=== PATIENT | male | born 1985 | race Caucasian/White ===

== ENCOUNTER 2017-09-10 08:09 | Emergency (ER) | payer BC ==
[~2017-09-10] VITALS: Ht 180.3 cm; Wt 150.0 kg
[~2017-09-10 08:09] MED LIST: BLOOD PRESSURE MED; CIPROFLOXACN500 MG PO; HYDROCHLOROT25 MG PO; IMODIUM OR; LOPRESSOR 550 MG/TAB PO; LORTAB 1010 MG PO; METO50TA52 PO; NAPROSYN500 MG PO; NAPROXEN500 MG OR; NO; NORCO1 TA1 PO; NORVASC PO; PRILOSEC20 MG/CAP PO; ULTRAM50 MG OR
[2017-09-10] MEDS ORDERED: LOSARTAN POT25 MG PO (08:27)
[2017-09-10] MEDS ORDERED: HYDROCHLOROT25 MG PO (08:27)
[2017-09-10] MEDS ORDERED: KLOR-CON 1010 MEQ PO (08:28)
[2017-09-10 08:41] LABS: HEMATOCRIT 46.6 % (39.0-50.0); HEMOGLOBIN 16.4 g/dl (14.0-18.0); IMMATURE GRANULOCYTES 0.2 % (0.0-1.0); MEAN CORPUSCULAR HGB 31.1 pG CALC (26.0-32.0); MEAN CORPUSCULAR HGB CONC 35.2 g/L CALC (32.0-36.0); NEUT# 5.29 thou/uL (1.82-7.42); RED BLOOD COUNT 5.27 mill/uL (4.70-6.10); RED CELL DISTRI WIDTH 12.8 % (11.5-15.5)
[2017-09-10 08:43] LABS: URINE BILIRUBIN - DIPSTICK NEGATIVE (NEGATIVE); URINE BLOOD DIPSTICK NEGATIVE (NEGATIVE); URINE COLOR YELLOW; URINE GLUCOSE - DIPSTICK NEGATIVE (NEGATIVE); URINE KETONE NEGATIVE (NEGATIVE); URINE LEUK ESTERASE NEGATIVE (NEGATIVE); URINE NITRITE - DIPSTICK NEGATIVE (Negative); URINE PH 7.5 (4.5-8.0); URINE PROTEIN - DIPSTICK NEGATIVE (NEG-TRACE); URINE UROBILINOGEN - DIPSTICK 0.2 E.U./dL (0.2)
[2017-09-10 09:01] LABS: MEAN CELL VOLUME 88.4 fL CALC (80.0-100.0)
[2017-09-10 09:01] LABS: URINE CLARITY CLEAR
[2017-09-10 09:08] LABS: ALBUMIN 4.3 g/dL (3.2-5.0); ALKALINE PHOSPHATASE 64 u/l (38-126); ANION GAP 18 (6-22 (CALC)); BILIRUBIN, TOTAL 1.1 mg/dL (0.0-1.4); BUN 14 mg/dL (9-20); BUN/CREATININE RATIO 19 (12-20 (CALC)); CARBON DIOXIDE 27 mmol/l (22-30); CHLORIDE 102 mmol/l (95-108); CREATININE 0.7 mg/dL (0.7-1.3); GFR > 60 ML/MIN (>=60 (CALC)); GFR FOR AFR.AMER. > 60 ML/MIN (>=60 (CALC)); LIPASE 102 u/l (23-300); SGOT/AST 33 u/l (17-59); SGPT/ALT 50 u/l (21-72); SODIUM 142 mmol/l (137-146); TOTAL PROTEIN 7.7 g/dL (6.3-8.2)
[2017-09-10 09:11] LABS: POTASSIUM 4.7 mmol/l (3.5-5.1)
[2017-09-10] MEDS ORDERED: RANITIDINE 150150 MG PO (10:23)
[2017-09-10 10:39] VITALS: BP 120/66
== END 2017-09-10 10:39 | disposition home or self-care (01) | DRG 392 ==
LOC: ED 08:09
PROVIDERS: Family Medicine
DX: R10.11 Right upper quadrant pain (principal); R10.32 Left lower quadrant pain; I10 Essential (primary) hypertension; F17.220 Nicotine dependence, chewing tobacco, uncomplicated
CPT/HCPCS: Q9967

== ENCOUNTER 2018-08-16 18:58 | Emergency (ER) | payer BC ==
[~2018-08-16] VITALS: Ht 180.3 cm; Wt 112.2 kg
[~2018-08-16 18:58] MED LIST changes: +KLOR-CON 1010 MEQ PO; +LOSARTAN POT25 MG PO; +RANITIDINE 150150 MG PO
[2018-08-16] MEDS ORDERED: VOLTAREN - GENE75 MG PO (19:23)
[2018-08-16] MEDS ORDERED: TRAMADOL HCL50 MG PO (19:23)
[2018-08-16] MEDS ORDERED: FLEXERIL5 M1 PO (19:23)
[2018-08-16 19:39] VITALS: BP 131/83
== END 2018-08-16 19:39 | disposition home or self-care (01) | DRG 563 ==
LOC: ED 18:58
DX: S39.012A Strain of muscle, fascia and tendon of lower back, initial encounter (principal); X50.1XXA Overexertion from prolonged static or awkward postures, initial encounter; Y92.812 Truck as the place of occurrence of the external cause

== ENCOUNTER 2020-12-05 13:00 | Inpatient (IN) | payer OTHER ==
[~2020-12-05] VITALS: Ht 180.3 cm; Wt 144.0 kg
[~2020-12-05 13:00] MED LIST changes: +FLEXERIL5 M1 PO; +TRAMADOL HCL50 MG PO; +VOLTAREN - GENE75 MG PO
--- NOTE | 2020-12-05 13:00 | NUR ---
PT AMBULATED TO ROOM 15 W/STEADY GAIT DIAPHORETIC. SATS 84 % RA. PT REFUSED WC X 2.
[2020-12-05 14:04] LABS: HEMATOCRIT 43.3 % (39.0-50.0); HEMOGLOBIN 15.6 g/dl (14.0-18.0); IMMATURE GRANULOCYTES 0.2 % (0.0-5.0); MEAN CELL VOLUME 88.5 fL CALC (80.0-100.0); MEAN CORPUSCULAR HGB 31.9 pG CALC (26.0-32.0); NEUT# 10.18 thou/uL (1.82-7.42); RED BLOOD COUNT 4.89 mill/uL (4.70-6.10); RED CELL DISTRI WIDTH 11.6 % (11.5-15.5)
[2020-12-05 14:07] LABS: ALBUMIN 4.1 g/dL (3.2-5.0); ALKALINE PHOSPHATASE 49 u/l (38-126); BILIRUBIN, TOTAL 1.5 mg/dL (0.0-1.4); BUN 16 mg/dL (9-20); BUN/CREATININE RATIO 16 (12-20 (CALC)); CARBON DIOXIDE 31 mmol/l (22-30); CHLORIDE 97 mmol/l (95-108); GFR > 60 ML/MIN (>=60 (CALC)); GFR FOR AFR.AMER. > 60 ML/MIN (>=60 (CALC)); SODIUM 135 mmol/l (137-146); TOTAL PROTEIN 7.7 g/dL (6.3-8.2)
[2020-12-05 14:11] LABS: ANION GAP 11 (6-22 (CALC)); POTASSIUM 3.6 mmol/l (3.5-5.1); SGOT/AST 69 u/l (17-59)
[2020-12-05 14:19] LABS: MYOGLOBIN 79 ng/mL (0 - 121)
--- NOTE | 2020-12-05 14:55 | NUR ---
PT UP TO BATHROOM WITH STEADY GAIT
--- NOTE | 2020-12-05 16:08 | NUR ---
STABLE, NO CHANGES. PENDING ADMISSION.
--- NOTE | 2020-12-05 17:06 | NUR ---
PT ADMITTED, NURSE ON MEDSURG TO CALL ED FOR REPORT.
--- NOTE | 2020-12-05 17:20 | NUR ---
ATTEMPTED TO CALL REPORT TO FLOOR, NURSE WITH ANOTHER ADMISSION, WILL CALL BACK.
--- NOTE | 2020-12-05 18:26 | NUR ---
IV MEDS INFUSING WITHOUT DIFFICULTY. VITALS UPDATE, STABLE.
--- NOTE | 2020-12-05 18:40 | NUR ---
REPORT GIVEN TO BELEN PÉREZ ON [facility]. PT ADMITTED TO [phone]
[2020-12-05 19:00] VITALS: BP 127/72
--- NOTE | 2020-12-05 20:00 | NUR ---
PATIENT IS RESTING COMFORTABLY. NO CONCERNS OR COMPLAINTS AT THIS TIME
--- NOTE | 2020-12-06 02:07 | NUR ---
PATIENT IN PRONE POSITION SLEEPING
[2020-12-06 04:31] VITALS: BP 116/76
[2020-12-06 05:37] LABS: HEMATOCRIT 41.6 % (39.0-50.0); HEMOGLOBIN 14.8 g/dl (14.0-18.0); IMMATURE GRANULOCYTES 0.2 % (0.0-5.0); MEAN CELL VOLUME 88.7 fL CALC (80.0-100.0); MEAN CORPUSCULAR HGB 31.6 pG CALC (26.0-32.0); MEAN CORPUSCULAR HGB CONC 35.6 g/dL CAL (32.0-36.0); NEUT# 5.57 thou/uL (1.82-7.42); RED BLOOD COUNT 4.69 mill/uL (4.70-6.10); RED CELL DISTRI WIDTH 11.7 % (11.5-15.5)
[2020-12-06 05:54] LABS: ALBUMIN 3.6 g/dL (3.2-5.0); ALKALINE PHOSPHATASE 44 u/l (38-126); ANION GAP 12 (6-22 (CALC)); BUN 14 mg/dL (9-20); BUN/CREATININE RATIO 23 (12-20 (CALC)); CARBON DIOXIDE 31 mmol/l (22-30); CHLORIDE 98 mmol/l (95-108); CREATININE 0.6 mg/dL (0.7-1.3); GFR > 60 ML/MIN (>=60 (CALC)); GFR FOR AFR.AMER. > 60 ML/MIN (>=60 (CALC)); POTASSIUM 3.9 mmol/l (3.5-5.1); SGOT/AST 60 u/l (17-59); SODIUM 136 mmol/l (137-146); TOTAL PROTEIN 6.6 g/dL (6.3-8.2)
[2020-12-06 05:56] LABS: BILIRUBIN, TOTAL 0.8 mg/dL (0.0-1.4)
[2020-12-06 08:50] VITALS: BP 145/77
--- NOTE | 2020-12-06 08:50 | NUR ---
PT SITTING IN BED. A&O X4. NO DISTRESS NOTED. O2 VIA NC @4L IN PLACE. O2 SUSTAINING 90-91%. CLEAR DIMINISHED BREATH SOUNDS UPON AUSCULTATION. BOOK RETAILER PLACED BY THIS SPINDLE SETTER. IS DEVICE GIVEN, EDUCATION GIVEN ON ITS PROPER USE, ENCOURAGED PT TO USE DEVICE Q1 HR X10 REPITITIONS. ACTIVE BOWEL SOUNDS X4 QUADRANTS. #20G LAC HEALTHY AND PATENT. NO OTHER NEEDS AT THIS TIME. ASSESSMENT COMPLETED. DISCUSSED POC. CALL LIGHT WITHIN REACH ISOLATION PRECAUTIONS IN PLACE.
[2020-12-06 09:58] LABS: URINE BLOOD DIPSTICK TRACE-INTACT (NEGATIVE); URINE GLUCOSE - DIPSTICK NEGATIVE (NEGATIVE); URINE KETONE 40 mg/dL (NEGATIVE); URINE LEUK ESTERASE NEGATIVE (NEGATIVE); URINE PH 6.5 (4.5-8.0); URINE PROTEIN - DIPSTICK TRACE mg/dL (NEG-TRACE); URINE SPECIFIC GRAVITY 1.025
[2020-12-06 09:59] LABS: URINE BILIRUBIN - DIPSTICK SMALL (NEGATIVE); URINE COLOR DK. YELLOW; URINE NITRITE - DIPSTICK NEGATIVE (Negative)
[2020-12-06 11:00] VITALS: BP 110/60
--- NOTE | 2020-12-06 12:00 | NUR ---
PT SITTING IN BED. HF O2 VIA NC APPLIED AND TITRATED UP TO 6L, O2 SUSTAINING 92%. NO OTHER NEEDS AT THIS TIME. CALL LIGHT WITHIN REACH.
--- NOTE | 2020-12-06 12:49 | NUR ---
DR MORA AT BEDSIDE DISCUSSING POC
[2020-12-06 16:00] VITALS: BP 114/64
--- NOTE | 2020-12-06 17:17 | NUR ---
PT SITTING IN BED. IV REMAINS HEALTHY AND PATENT. HF NC @6L REMAINS IN PLACE; O2 SUSTAINING 90-93%. NO OTHER NEEDS AT THIS TIME.CALL LIGHT WITHIN REACH.
[2020-12-06 18:00] VITALS: BP 120/65
--- NOTE | 2020-12-06 19:00 | NUR ---
REPORT RECEIVED FROM Matty GARCIA RN, CARE OF PT ASSUMED AT THIS TIME.
--- NOTE | 2020-12-06 20:03 | NUR ---
SP02 92% ON HIGH FLOW NASAL CANNULA AT 6L/MIN. RESPIRATIONS SHALLOW, REGULAR AND UNLABORED AT REST.REPORTS INFREQUENT NON-PRODUCTIVE COUGH. SOB W/ EXERTION. EDUCATION PROVIDED ON PULMONARY HYGIENE AND PRONING. SEE E-MAR FOR HUMAN RESOURCES ASSISTANT MANAGER. L-AC #20G PATENT AND SALINE LOCKED. COVID-19 ISOLATION PRECAUTIONS MAINTAINED. PT DENIES NEEDS AT THIS TIME. CALL GALICIA WITHIN REACH, AGREES TO CALL PRN. BED LOCKED IN LOW POSITION WITH BEDRAILS UP X2.
[2020-12-07] VITALS: BP 122/67
--- NOTE | 2020-12-07 | NUR ---
PT APPEARS TO BE SLEEPING COMFORTABLY. RESPIRATIONS REGULAR AND UNLABORED. CALL GALICIA REMAINS WITHIN REACH.
[2020-12-07 05:15] VITALS: BP 101/54
[2020-12-07 05:54] LABS: HEMATOCRIT 43.2 % (39.0-50.0); HEMOGLOBIN 15.3 g/dl (14.0-18.0); IMMATURE GRANULOCYTES 0.5 % (0.0-5.0); MEAN CELL VOLUME 88.9 fL CALC (80.0-100.0); MEAN CORPUSCULAR HGB 31.5 pG CALC (26.0-32.0); MEAN CORPUSCULAR HGB CONC 35.4 g/dL CAL (32.0-36.0); NEUT# 5.36 thou/uL (1.82-7.42); RED BLOOD COUNT 4.86 mill/uL (4.70-6.10); RED CELL DISTRI WIDTH 11.9 % (11.5-15.5)
--- NOTE | 2020-12-07 06:06 | NUR ---
PT DENIES NEEDS AT THIS TIME. RESTING IN BED COMFORTABLY. SPO2 94%. CALL GALICIA REMAINS WITHIN REACH, AGREES TO CALL PRN.
[2020-12-07 06:11] LABS: ALBUMIN 3.6 g/dL (3.2-5.0); ALKALINE PHOSPHATASE 46 u/l (38-126); ANION GAP 10 (6-22 (CALC)); BILIRUBIN, TOTAL 0.9 mg/dL (0.0-1.4); BUN 20 mg/dL (9-20); BUN/CREATININE RATIO 31 (12-20 (CALC)); CARBON DIOXIDE 30 mmol/l (22-30); CHLORIDE 103 mmol/l (95-108); CREATININE 0.6 mg/dL (0.7-1.3); GFR > 60 ML/MIN (>=60 (CALC)); GFR FOR AFR.AMER. > 60 ML/MIN (>=60 (CALC)); POTASSIUM 3.7 mmol/l (3.5-5.1); SGOT/AST 53 u/l (17-59); SODIUM 140 mmol/l (137-146); TOTAL PROTEIN 6.6 g/dL (6.3-8.2)
--- NOTE | 2020-12-07 09:05 | NUR ---
02 6L/M HUMIDIFIED VIA HIGH FLOW NASAL CANNULA. SP02 93% AT REST.
[2020-12-07 10:50] VITALS: BP 114/69
--- NOTE | 2020-12-07 12:00 | NUR ---
RECIEVED REPORT FROM BELEN AGUERO
--- NOTE | 2020-12-07 12:34 | NUR ---
DR HAMILTON AND BLAYNE,ANOMID AT BEDSIDE
--- NOTE | 2020-12-07 13:56 | NUR ---
PT RESTING IN SEMI FOWLERS POSITION. PT IS A/OX3.RESPIRATIONS ARE EVEN AND UNLABORED ON 5L HIGH FLOW NC, 96%. LUNG SOUNDS ARE CLEAR. HEART RHYTHM NORMAL WITH TELE IN PLACE. BOWEL SOUNDS ARE ACTIVE. #20G LAC FLUSHED, SITE APPEARS HEALTHY AND PATENT. SKIN INTACT. PT DENIES OF ANY PAINS OR DISCOMFORTS AT THIS TIME. ALL SAFETY PRECAUTIONS ARE IN PLACE WITH CALL LIGHT IN REACH. AIR/CONTACT PRECAUTIONS ARE IN PLACE. WILL CONTINUE TO MONITOR.
[2020-12-07 15:32] VITALS: BP 112/61
--- NOTE | 2020-12-07 16:39 | NUR ---
PT RESTING IN SEMI FOWLERS POSITION. RESPIRATIONS ARE EVEN AND UNLABORED ON 5L HIGH FLOW NC. #20G LAC REMAINS IN PLACE. TELE MONITORING IN PLACE. PT DENIES OF ANY PAINS OR DISCOMFORTS AT THIS TIME. ALL SAFETY AND ISOLATION PRECAUTIONS ARE IN PLACE WITH CALL LIGHT IN REACH. WILL CONTINUE TO MONITOR.
[2020-12-07 19:50] VITALS: BP 124/70
--- NOTE | 2020-12-07 20:00 | NUR ---
PHYSICAL ASSESMENT COMPLETE. PT CURRENTLY DENIES PAIN OR DISCOMFORT. SCHEDULED MEDICATIONS AND PRN MEDICATION ADMINISTERED, SEE E-MAR. PT DENIES ANY NEEDS AT THIS TIME. PLAN OF CARE REVIEWED, PT DENIES QUESTIONS, VERBALIZES UNDERSTANDING. ITEMS WITHIN REACH, BED LOCKED IN LOW POSITION W/ BEDRAILS UP X2. CALL GALICIA WITHIN REACH, AGREES TO CALL PRN.
--- NOTE | 2020-12-07 23:57 | NUR ---
PT LAYING IN BED WITH EYES CLOSED, APPEARS TO BE SLEEPING, APPEARS COMFORTABLE AND IN NO DISTRESS. RESPIRATIONS REGULAR AND UNLABORED. ITEMS REMAIN WITHIN REACH, CALL GALICIA REMAINS WITHIN REACH. BED REMAINS LOCKED AND IN LOW POSITION WITH BEDRAILS UP X2. WILL CONTINUE TO MONITOR.
[2020-12-08 00:44] VITALS: BP 96/53
--- NOTE | 2020-12-08 04:13 | NUR ---
PT RESTING IN BED, NO SIGNS OF DISTRESS NOTED, RESP EVEN AND UNLABORED. PT VOICES NO NEEDS OR COMPLAINTS AT THIS TIME. CALL LIGHT IN REACH, CONTINUE TO MONITOR.
[2020-12-08 04:58] VITALS: BP 115/73
--- NOTE | 2020-12-08 07:00 | NUR ---
RECIEVED REPORT FROM BELEN SANTIAGO
[2020-12-08 07:19] LABS: HEMATOCRIT 43.1 % (39.0-50.0); HEMOGLOBIN 15.1 g/dl (14.0-18.0); MEAN CELL VOLUME 90.2 fL CALC (80.0-100.0); MEAN CORPUSCULAR HGB 31.6 pG CALC (26.0-32.0); NEUT# 7.19 thou/uL (1.82-7.42); RED BLOOD COUNT 4.78 mill/uL (4.70-6.10); RED CELL DISTRI WIDTH 11.9 % (11.5-15.5)
[2020-12-08 07:39] VITALS: BP 112/71
--- NOTE | 2020-12-08 07:39 | NUR ---
PT RESTING IN SEMI FOWLERS POSITION. PT IS A/O X3. ASSESSMENT AND VTALS COMPLETED. BP 112/71, HR 65, O2 94% ON 4L NC. RESIRATIONS ARE EVEN AND UNLABORED. HERAT RHYTHM NORMAL WITH TELE IN PLACE. BOWEL SOUNDS ARE ACTIVE X4. #22G LAC FLUSHED, SITE APPEARS HEALTHY AND PATENT. SKIN INTACT. PT DENIES OF ANY PAINS OR DISCOMFORTS AT THIS TIME. PT REQUEST FOR O2 TO BE DECREASED. BRANCH EMPLOYMENT COORDINATOR INFORMED THAT PT WAS ON 5 AND HAS BEEN TURNED DOWN TO 4. BRANCH EMPLOYMENT COORDINATOR EDUCATED ON SLOWLY DECREASING O2. PT VERBALIZED UNDERSTANDING BUT STATES " IM GOING HOME NO MATTER WHAT." BRANCH EMPLOYMENT COORDINATOR EDUCATED ON OXYGEN DEMAND AT THIS TIME. PT STATES " I HAVE A DOCTOR ON THE OUTSIDE THAT CAN ORDER ME OXYGEN." MD TO BE NOTFIED. O2 TO BE DECREASED SLOWLY TOLERATED. ALL SAFETY PRECAUTIONS ARE IN PLACE WITH CALL LIGHT IN REACH. ISOLAITON PRECAUTIONS. WILL CONTINUE TO MONITOR
[2020-12-08 07:49] LABS: ALBUMIN 3.4 g/dL (3.2-5.0); ALKALINE PHOSPHATASE 42 u/l (38-126); ANION GAP 9 (6-22 (CALC)); BILIRUBIN, TOTAL 0.8 mg/dL (0.0-1.4); BUN 22 mg/dL (9-20); BUN/CREATININE RATIO 30 (12-20 (CALC)); C-REACTIVE PROTEIN 4.2 mg/dL (0-0.9); CARBON DIOXIDE 31 mmol/l (22-30); CHLORIDE 103 mmol/l (95-108); CREATININE 0.7 mg/dL (0.7-1.3); GFR > 60 ML/MIN (>=60 (CALC)); GFR FOR AFR.AMER. > 60 ML/MIN (>=60 (CALC)); POTASSIUM 3.9 mmol/l (3.5-5.1); SGOT/AST 57 u/l (17-59); SODIUM 139 mmol/l (137-146); TOTAL PROTEIN 6.3 g/dL (6.3-8.2)
[2020-12-08 10:58] VITALS: BP 100/62
--- NOTE | 2020-12-08 11:40 | NUR ---
DR HAMILTON AND BLAYNE,ANOMID AT BEDSIDE
--- NOTE | 2020-12-08 11:56 | NUR ---
O2 INCREASED TO 6.5L HIGH FLOW NC, 91%. RESPIRATIONS REMAINS EVEN AND UNLABORED. TELE MONITORING IN PLACE. PT RE-EDUCATED ON IS, 1500 REACHED. PT DENIES OF ANY PAINS OR DISCOMFORTS AT THIS TIME. ALL SAFETY PRECAUTIONS ARE IN PLACE WITH CALL LIGHT IN REACH. WILL CONTINUE TO MONITOR.
[2020-12-08 14:55] VITALS: BP 124/68
--- NOTE | 2020-12-08 15:48 | NUR ---
PT RESTING IN SEMI FOWLERS POSITION WATCHING. RESPIRATIONS ARE EVEN AND UNLABORED ON 6.5L HIGH FLOW NC. TELE MONITORING IN PLACE. #22G LAC FLUSHED, SITE APEPARS HEALTHY AND PATENT. PT DENIES OF ANY PAINS OR DISCOMFORTS AT THIS TIME. ALL SAFETY PRECAUTIONS ARE IN PLACE WITH CALL LIGHT IN REACH. WILL CONTINUE TO MONITOR.
--- NOTE | 2020-12-08 16:18 | NUR ---
[place] FROM ER CALLED STATING PT 130-180S. PT IN BATHROOM BRUSHING TEETH
--- NOTE | 2020-12-08 18:22 | NUR ---
PT COMPLAINS OF NC BEING UNFORTABLE. HUMIDIFICATION ALREADY APPLIED. PT AGGITATED AT THIS TIME. PT STATES SHE NO LONGER WEARING THE OXYGEN. FAMILY ON PHONE TELLING PT NOT TO WEAR IT. NOTIFIED.
--- NOTE | 2020-12-08 18:37 | NUR ---
GUAZE WRAP APPLIED TO NC FOR COMFORT. PT EDUACTED ON NEED TO KEEP O2 ON TO ATTEMPT WEANING. PT VERBALIZED UNDERSTANDING.6.5L NC REAPPLIED. RESPIRATIONS REMAINS EVEN AND UNLABORED,
[2020-12-08 19:41] VITALS: BP 149/82
[2020-12-09] VITALS: BP 125/73
[2020-12-09 04:00] VITALS: BP 137/80
[2020-12-09 06:08] LABS: HEMATOCRIT 43.2 % (39.0-50.0); HEMOGLOBIN 15.5 g/dl (14.0-18.0); IMMATURE GRANULOCYTES 4.1 % (0.0-5.0); MEAN CELL VOLUME 88.9 fL CALC (80.0-100.0); MEAN CORPUSCULAR HGB 31.9 pG CALC (26.0-32.0); MEAN CORPUSCULAR HGB CONC 35.9 g/dL CAL (32.0-36.0); NEUT# 8.88 thou/uL (1.82-7.42); RED BLOOD COUNT 4.86 mill/uL (4.70-6.10); RED CELL DISTRI WIDTH 11.8 % (11.5-15.5)
[2020-12-09 06:25] LABS: ALBUMIN 3.3 g/dL (3.2-5.0); ALKALINE PHOSPHATASE 41 u/l (38-126); ANION GAP 9 (6-22 (CALC)); BUN 15 mg/dL (9-20); BUN/CREATININE RATIO 25 (12-20 (CALC)); CARBON DIOXIDE 29 mmol/l (22-30); CHLORIDE 106 mmol/l (95-108); CREATININE 0.6 mg/dL (0.7-1.3); GFR > 60 ML/MIN (>=60 (CALC)); GFR FOR AFR.AMER. > 60 ML/MIN (>=60 (CALC)); POTASSIUM 3.5 mmol/l (3.5-5.1); SGOT/AST 61 u/l (17-59); SODIUM 140 mmol/l (137-146); TOTAL PROTEIN 6.2 g/dL (6.3-8.2)
--- NOTE | 2020-12-09 07:00 | NUR ---
RECIEVED REPORT FROM BELEN SANTIAGO
[2020-12-09 08:26] VITALS: BP 128/72
--- NOTE | 2020-12-09 08:26 | NUR ---
PT RESTING IN SEMI FOWLERS POSITION. PT IS A/O X3. ASSESSMENT AND VITALS COMPLETED. BP 128/72, HR 71, O2 94% ON 5L HIGH FLOW NC. RESPIRATIONS ARE EVEN AND UNLABORED WITH NO DISTRESS NOTED. LUNG SOUNDS ARE CLEAR. HEART RHYTHM NORMAL WITH TELE IN PLACE. BOWEL SOUNDS ARE ACTIVE.LBM 9/, LOOSE STOOLS REPORTED. #22G LAC FLUSHED, SITE APPEARS HEALTHY AND PATENT. SKIN INTACT. PT DENIES OF ANY PAINS OR DISCOMFORTS AT THIS TIME. PT EXPRESSES HIS FEELINGS ON LEAVING TODAY. PT STATES " THE DR IS GOING TO WRITE ME A PRESCRIPTION FOR OXYGEN TODAY AND I AM LEAVING." CHART CLERK INFORMED PT THAT HE WOULD HAVE TO TALK TO DOCTOR. ALL SAFETY PRECAUTIONS ARE IN PLACE WITH CALL LIGHT IN REACH. ISOLATION PRECAUTIONS ARE IN PLACE WITH CALL LIGHT IN REACH. WILL CONTINUE TO MONITOR.
[2020-12-09 10:30] VITALS: BP 143/70
[2020-12-09 10:35] VITALS: BP 143/75
--- NOTE | 2020-12-09 11:42 | NUR ---
PT RESTING IN SEMI FOWLERS POSITION. RESPIRATIONS ARE EVEN AND UNLABORED WITH NO DISTRESS NOTED.92% ON 4L NC. TELE MONITORING IN PLACE. PT DENIES OF ANY PAINS OR DISCOMFORTS AT THIS TIME. ALL SAFETY PRECAUTIONS ARE IN PLACE WITH CALL LIGHT IN REACH. WILL CONTINUE TO MONITOR.,
--- NOTE | 2020-12-09 11:50 | NUR ---
DR HAMILTON AND BLAYNE,ANOMID AT BEDSIDE
--- NOTE | 2020-12-09 12:20 | NUR ---
O2 DECREASED TO 2L NC, O2 93%. O2 REMOVED FOR TEST WALK. PT INSTRUCTED TO CALL IF FEELEING SOB. PT VERBLAIZED UNDERSTANDING. WILL CONTINUE TO MONTIOR.
--- NOTE | 2020-12-09 12:46 | NUR ---
O2 87% ON ROOM AIR. 3L NC REAPPLIED, 94%. RESPIRATIONS REMAINS EVEN AND UNLABORED. DR HAMILTON NOTIFIED.
[2020-12-09] MEDS ORDERED: ZITHROMAX250 MG PO (16:06)
[2020-12-09] MEDS ORDERED: DEXAMETHASON6 MG PO (16:07)
[2020-12-09] MEDS ORDERED: ASPIRIN REGULA325 M1 PO (16:07)
--- NOTE | 2020-12-09 17:25 | NUR ---
PT EDUCATED ON DC INSTRUCTIONS AND NEW MEDICATIONS ALONG WITH HOME OXYGEN. IV REMOVED WITH CATHATER STILL INTACT. PT CONNECTED TO HOME O2.
--- NOTE | 2020-12-09 17:41 | NUR ---
Discharge instructions given. Patient verbalizes understanding of same. Discharged in stable condition via Wheelchair to Home with staff. All belongings sent with pt. PT DC HOME IN STABLE CONDITION VIA WHEELCHAIR ACCOMPAINED BY WRITTER WITH ALL PERSONAL BELONINGS, DC INSTRUCTIONS.
== END 2020-12-09 17:44 | disposition home or self-care (01) | DRG 177 ==
LOC: ED 13:00 → ED-I 15:04 → ED 16:06 → MS2 16:07
PROVIDERS: Emergency Medicine; Nurse Practitioner; ADMIT Internal Medicine; ATTEND Internal Medicine
PROC: XW033E5 Introduction of Remdesivir Anti-infective into Peripheral Vein, Percutaneous Approach, New Technology Group 5 (ICD-10-PCS; principal; 2020-12-06)
DX: U07.1 COVID-19 (principal); J12.82 Pneumonia due to coronavirus disease 2019; J96.01 Acute respiratory failure with hypoxia; Z68.41 Body mass index [BMI] 40.0-44.9, adult; I10 Essential (primary) hypertension; E66.01 Morbid (severe) obesity due to excess calories
CPT/HCPCS: J1650; Q9967

== ENCOUNTER 2022-10-05 07:28 | Emergency (ER) | payer OTHER ==
[~2022-10-05] VITALS: Ht 180.3 cm; Wt 149.0 kg
[~2022-10-05 07:28] MED LIST changes: +ASPIRIN REGULA325 M1 PO; +COZAAR100 MG PO; +DEXAMETHASON6 MG PO; +K-TAB20 MEQ; +NORVASC10 M1 PO; +TOPROL XL50 MG PO; +ZITHROMAX250 MG PO
[2022-10-05 07:41] VITALS: BP 158/104
[2022-10-05 08:00] VITALS: BP 144/94
[2022-10-05 08:21] LABS: BASO% 0.6 % (0-3); EOS% 4.4 % (0-8); HEMATOCRIT 45.3 % (39.0-50.0); HEMOGLOBIN 15.8 g/dl (14.0-18.0); IMMATURE GRANULOCYTES 0.3 % (0.0-5.0); LYMPH% 25.4 % (15-41); MEAN CELL VOLUME 85.6 fL CALC (80.0-100.0); MEAN CORPUSCULAR HGB 29.9 pG CALC (26.0-32.0); MEAN CORPUSCULAR HGB CONC 34.9 g/dL CAL (32.0-36.0); MONO% 6.5 % (2-13); NEUT# 4.86 thou/uL (1.82-7.42); NEUT% 62.8 % (42-76); RED BLOOD COUNT 5.29 mill/uL (4.70-6.10); RED CELL DISTRI WIDTH 12.3 % (11.5-15.5)
[2022-10-05 10:12] VITALS: BP 143/94
[2022-10-05] MEDS ORDERED: IBUPROFEN600 MG PO (10:13)
[2022-10-05] MEDS ORDERED: LIDOCARE ARM/NECK4 % TOP (10:13)
[2022-10-05] MEDS ORDERED: METHOCARBAMOL500 MG PO (10:13)
== END 2022-10-05 10:18 | disposition home or self-care (01) | DRG 552 ==
LOC: ED 07:28
PROVIDERS: Family Medicine
DX: M54.50 Low back pain, unspecified (principal); I10 Essential (primary) hypertension; K21.9 Gastro-esophageal reflux disease without esophagitis; E66.01 Morbid (severe) obesity due to excess calories; Z86.19 Personal history of other infectious and parasitic diseases; F17.200 Nicotine dependence, unspecified, uncomplicated

== ENCOUNTER 2023-05-14 13:35 | Emergency (ER) | payer OTHER ==
[~2023-05-14] VITALS: Ht 180.3 cm; Wt 150.0 kg
[~2023-05-14 13:35] MED LIST changes: +IBUPROFEN600 MG PO; +LIDOCARE ARM/NECK4 % TOP; +METHOCARBAMOL500 MG PO
[2023-05-14 14:31] VITALS: BP 133/91
[2023-05-14 14:44] LABS: BASO% 0.5 % (0-3); EOS% 6.2 % (0-8); HEMOGLOBIN 15.1 g/dl (14.0-18.0); IMMATURE GRANULOCYTES 0.2 % (0.0-5.0); LYMPH% 31.7 % (15-41); MEAN CELL VOLUME 86.3 fL CALC (80.0-100.0); MEAN CORPUSCULAR HGB 30.3 pG CALC (26.0-32.0); MEAN CORPUSCULAR HGB CONC 35.1 g/dL CAL (32.0-36.0); MONO% 8.7 % (2-13); NEUT# 4.61 thou/uL (1.82-7.42); NEUT% 52.7 % (42-76); RED BLOOD COUNT 4.98 mill/uL (4.70-6.10); RED CELL DISTRI WIDTH 12.8 % (11.5-15.5)
[2023-05-14 15:10] LABS: ALKALINE PHOSPHATASE 52 u/l (38-126); ANION GAP 10 (6-22 (CALC)); BILIRUBIN, TOTAL 1.1 mg/dL (0.2-1.3); BUN 16 mg/dL (9-20); BUN/CREATININE RATIO 22 (12-20 (CALC)); CARBON DIOXIDE 30 mmol/l (22-30); CHLORIDE 104 mmol/l (95-108); CREATININE 0.7 mg/dL (0.7-1.3); GFR FOR AFR.AMER. > 60 ML/MIN (>=60 (CALC)); GFR OTHER RACES > 60 ML/MIN (>=60 (CALC)); LIPASE 72 u/l (23-300); POTASSIUM 4.1 mmol/l (3.5-5.1); SGOT/AST 36 u/l (17-59); SODIUM 140 mmol/l (137-146)
[2023-05-14 15:14] LABS: ALBUMIN 4.2 g/dL (3.2-5.0)
[2023-05-14 15:19] LABS: URINE BILIRUBIN - DIPSTICK Negative (NEGATIVE); URINE BLOOD DIPSTICK Negative (NEGATIVE); URINE COLOR Yellow; URINE GLUCOSE - DIPSTICK Negative (NEGATIVE); URINE KETONE Negative (NEGATIVE); URINE LEUK ESTERASE Negative (NEGATIVE); URINE NITRITE - DIPSTICK Negative (Negative); URINE PH 7.5 (4.5-8.0); URINE PROTEIN - DIPSTICK Negative (NEG-TRACE); URINE UROBILINOGEN - DIPSTICK 0.2 E.U./dL (0.2)
[2023-05-14] MEDS ORDERED: PROTONIX40 M2 PO (17:51)
[2023-05-14] MEDS ORDERED: TRAMADOL HYDROC50 M1 PO (17:51)
[2023-05-14] MEDS ORDERED: LOMOTIL2.5 MG PO (17:51)
[2023-05-14] MEDS ORDERED: ZOFRAN4 MG/TAB PO (17:51)
[2023-05-14 18:17] VITALS: BP 133/91
== END 2023-05-14 18:17 | disposition home or self-care (01) | DRG 446 ==
LOC: ED 13:35
PROVIDERS: Nurse Practitioner
DX: K80.20 Calculus of gallbladder without cholecystitis without obstruction (principal); I10 Essential (primary) hypertension; K21.9 Gastro-esophageal reflux disease without esophagitis; E66.01 Morbid (severe) obesity due to excess calories
CPT/HCPCS: Q9967; S0164

== ENCOUNTER 2024-04-14 19:16 | Emergency (ER) | payer OTHER ==
[~2024-04-14] VITALS: Ht 180.3 cm; Wt 150.0 kg
[~2024-04-14 19:16] MED LIST changes: +CHOLESTYRAMINE4 G1 PO; +DIPHENOXYLATE/A1 TA1 PO; +LOMOTIL2.5 MG PO; +METOPROL TAR100 MG PO; +PERCOCET 5/325M1 TAB PO; +PROTONIX40 M2 PO; +TRAMADOL HYDROC50 M1 PO; +ZOFRAN4 MG/TAB PO
[2024-04-14 19:38] VITALS: BP 152/93
[2024-04-14] MEDS ORDERED: ASPIRIN 81 MG/TAB PO ONE (19:40)
[2024-04-14 19:59] LABS: BASO% 0.4 % (0-3); HEMATOCRIT 43.2 % (39.0-50.0); HEMOGLOBIN 15.6 g/dl (14.0-18.0); IMMATURE GRANULOCYTES 0.2 % (0.0-5.0); LYMPH% 25.6 % (15-41); MEAN CORPUSCULAR HGB 30.7 pG CALC (26.0-32.0); MEAN CORPUSCULAR HGB CONC 36.1 g/dL CAL (32.0-36.0); MONO% 8.4 % (2-13); NEUT# 6.23 thou/uL (1.82-7.42); NEUT% 63.4 % (42-76); RED BLOOD COUNT 5.08 mill/uL (4.70-6.10)
[2024-04-14 20:13] LABS: ALBUMIN 4.4 g/dL (3.2-5.0); ALKALINE PHOSPHATASE 59 u/l (38-126); ANION GAP 11 (6-22 (CALC)); BILIRUBIN, TOTAL 1.5 mg/dL (0.2-1.3); BUN 13 mg/dL (9-20); BUN/CREATININE RATIO 12 (12-20 (CALC)); CARBON DIOXIDE 31 mmol/l (22-30); CHLORIDE 101 mmol/l (95-108); ESTIMATED GFR 98 ML/MIN (>=90 (CALC)); LIPASE 93 u/l (23-300); POTASSIUM 4.2 mmol/l (3.5-5.1); SGOT/AST 43 u/l (17-59); SODIUM 139 mmol/l (137-146); TOTAL PROTEIN 7.3 g/dL (6.3-8.2)
[2024-04-14 20:14] LABS: ACT PARTIAL THROMBO TIME 26.5 SECONDS (20.0-32.5)
[2024-04-14 20:18] LABS: D-DIMER 0.28 mg/L (0.19-0.60)
[2024-04-14 20:21] VITALS: BP 142/91
[2024-04-14 20:41] VITALS: BP 146/96
[2024-04-14 21:10] VITALS: BP 146/96
== END 2024-04-14 21:19 | disposition home or self-care (01) | DRG 305 ==
LOC: ED 19:16
PROVIDERS: Family Medicine
DX: I10 Essential (primary) hypertension (principal); M79.622 Pain in left upper arm; R06.00 Dyspnea, unspecified